=== PATIENT | female | born 1960 | race Hispanic/Latino ===

== ENCOUNTER 2017-11-04 08:48 | Outpatient (CLI) | payer OTHER ==
--- NOTE | 2017-11-04 10:48 | MMO ---
BILATERAL SCREENING MAMMOGRAM: DATE: 11/04/17 HISTORY: 57-year-old female for baseline screening mammography. COMPARISON: None available. FINDINGS: Bilateral MLO and CC views of the breasts, as well as implant displacement views, show heterogeneousl y dense breast parenchyma, which may lower the sensitivity of mammography. Bilateral prepectoral impl ants are seen. Benign-appearing calcifications are seen in subareolar region of both breasts. There i s no evidence of suspicious mass, suspicious cluster of microcalcifications, or area of architectural distortion. Interpretation of this mammogram was performed with the assistance of computer-aided detection. IMPRESSION: BIRADS 2: Benign Finding(s) Annual screening mammography is recommended. POS: [facility]
== END 2017-11-04 08:49 | disposition home or self-care (01) ==
LOC: SCSMAMMO 08:48
PROVIDERS: ATTEND Family Medicine
DX: Z12.31 Encounter for screening mammogram for malignant neoplasm of breast (principal)
CPT/HCPCS: 77067